=== PATIENT | female | born 1995 | race Caucasian/White ===

== ENCOUNTER 2024-02-01 18:45 | Outpatient (CLI) | payer BC, SELFPAY ==
--- NOTE | 2024-02-01 20:10 | PM.OBTRLD ---
OB - Triage/Final Diagnosis Visit Information Date of evaluation: 02/01/24 Reason for evaluation: other ( leaking fluid) Comments/Additional reasons for admission: I have assessed the risk for this patient, Catracho Herminio Avalos, and determined that she would benefit from observation care.
== END 2024-02-01 20:20 | disposition home or self-care (01) ==
LOC: ANHOBOP 19:44 → ANHLDR 22:11
PROVIDERS: Visit Provider Obstetrics & Gynecology
DX: O42.90 Premature rupture of membranes, unspecified as to length of time between rupture and onset of labor, unspecified weeks of gestation (principal)
CPT/HCPCS: 84112; 99199

== ENCOUNTER 2024-04-27 12:16 | Emergency (ER) | payer BC, SELFPAY ==
[2024-04-27 12:20] VITALS: BP 120/90; PULSE 75; RESP 16; TEMP 36.5; O2SAT 99
--- NOTE | 2024-04-27 12:20 | ED.GENADULT ---
HPI - General Adult General Chief complaint: Vaginal Bleeding Stated complaint: vaginal bleeding Time Seen by Provider: 04/27/24 12:19 History of Present Illness HPI narrative: 28-year-old white female complains of vaginal bleeding. Patient had vaginal delivery February 13 she had continued to have vaginal bleeding since 04/09 2024. She complains of left lower quadrant abdominal pain off and on since . Her physician told her she was just healing. She saw primary care 4 days ago the next day her vaginal bleeding started again she is going through 2-4 pads a day. She says this does not feel like her menstrual cramps. Otherwise she is eating and drinking voiding fine. She has had 2 diarrheal stools. Denies fever cough runny nose swelling lumps or bumps rash or itching bleeding elsewhere bruising. Denies any other complaints. However she does not think her depression medicines working she got upset with the baby but did not hurt to baby. she feels more depressed. Denies any suicidal or homicidal ideation. Related Data Home Medications ?Medication ?Instructions ?Recorded ?Confirmed ?Last Taken ?Type fluvoxamine 150 mg 150 mg PO DAILY 02/01/24 04/27/24 1 Day Ago History capsule,extended release 24 hr ~01/31/24 quetiapine 300 mg tablet (Seroquel) 300 mg PO HS 02/01/24 04/27/24 1 Day Ago History ~01/31/24 Allergies Allergy/AdvReac Type Severity Reaction Status Date / Time erythromycin base Allergy Mild Vomiting Verified 04/27/24 12:26 Review of Systems Review of Systems: All systems reviewed & are unremarkable except as noted in HPI and below [facility] Comments depression and anxiety Exam Narrative: White female patient with mild distress.? patient is tearful when talking about depression otherwise patient showed no signs of distress. Head normocephalic, atraumatic.? Eyes conjunctiva pink sclera nonicteric.? Extraocular movements are intact.? Ears externally normal.? TMs are normal. ?Oropharynx is clear with moist mucous membranes without exudates.? Neck is supple nontender no lymphadenopathy.? Back is nontender.? Lungs are clear.? Heart is regular rate and rhythm without murmurs gallops or rubs.? Chest wall nontender. Abdomen is soft and nontender no hepatosplenomegaly or masses no CVA tenderness no abdominal bruits.? Extremities no cyanosis clubbing or edema.? Skin is warm and dry without rashes or lesions.? Neurological patient is alert and oriented x4.? Motor and sensory grossly intact.? Gait is normal. Course Vital Signs Vital signs: Vital Signs Temperature 36.5 C 04/27/24 12:20 Pulse Rate 75 04/27/24 12:20 Respiratory Rate 16 04/27/24 12:20 Blood Pressure 120/90 04/27/24 12:20 Pulse Oximetry 99 04/27/24 12:20 Oxygen Delivery Room Air 04/27/24 12:20 Temperature 37.4 C 04/27/24 14:23 Pulse Rate 82 04/27/24 14:23 Respiratory Rate 18 04/27/24 14:23 Blood Pressure 119/72 04/27/24 14:23 Pulse Oximetry 99 04/27/24 14:23 Oxygen Delivery Room Air 04/27/24 14:23 Medical Decision Making MDM Narrative Medical decision making narrative: ?Patient placed in room: Six ? History and physical was performed. Lactic acid CBC CMP lipase hCG urinalysis unremarkable Independent Historian: External Source Review: Differential Dx includes but not limited to: anxiety depression menses dysfunctional uterine bleeding diarrhea electrolyte imbalance Medications were Reviewed: home meds reviewed Medications given: Independently Interpreted by me: Shared decision Making: evaluation was discussed all questions were asked and answered patient agreed with the plan. Patient should follow-up with her primary care provider and discuss her depression and discuss whether any further evaluation of her abdominal pain is needed. Social Situation Impacting Patients Care: Discussed with Dr. MORENO DIAGNOSIS: Vaginal bleeding which is likely the start of her menses., abdominal pain depression without suicidal ideation DISPOSITION : discharge home CONDITION AT DISCHARGE: stable Vital Signs Vital Signs: Vital Signs Temperature 36.5 C 04/27/24 12:20 Pulse Rate 75 04/27/24 12:20 Respiratory Rate 16 04/27/24 12:20 Blood Pressure 120/90 04/27/24 12:20 Pulse Oximetry 99 04/27/24 12:20 Oxygen Delivery Room Air 04/27/24 12:20 Temperature 37.4 C 04/27/24 14:23 Pulse Rate 82 04/27/24 14:23 Respiratory Rate 18 04/27/24 14:23 Blood Pressure 119/72 04/27/24 14:23 Pulse Oximetry 99 04/27/24 14:23 Oxygen Delivery Room Air 04/27/24 14:23 Lab Data 04/27/24 12:54 04/27/24 12:54 Labs: Lab Results 04/27/24 04/27/24 04/27/24 Range/Units 12:23 12:42 12:54 WBC 6.1 (4.8-10.8) K/mm3 RBC 4.79 (4.20-5.40) M/mm3 Hgb 13.7 (12.0-15.0) g/dL Hct 42.0 (35.0-49.0) % MCV 87.7 (78.0-102.0) fL MCH 28.6 (27.0-31.0) pg MCHC 32.6 (32-36) g/dL RDW 13.4 (11.6-14.4) % Plt Count 354 (150-420) K/mm3 MPV 8.7 L (9.2-11.8) fl Sodium 140 (136-145) mmol/L Potassium 3.9 (3.5-5.1) mmol/L Chloride 102 (98-108) mmol/L Carbon Dioxide 28 (21-32) mmol/L Anion Gap 10 (4-12) mmol/L BUN 15 (7-18) mg/dL Creatinine 0.83 (0.55-1.02) mg/dL Estim Creat Clear Calc 73 ml/min Estimated GFR > 60 (59 - ) Glucose 96 (70-99) mg/dL Calculated Osmolality 290 (285-295) mOsm/kg Lactic Acid 0.9 (0.4-2.0) mmol/L Calcium 9.4 (8.5-10.1) mg/dL Total Bilirubin 0.4 (0.00-1.00) mg/dL AST 12 L (15-37) U/L ALT 20 (14-59) U/L Alkaline Phosphatase 50 (46-116) U/L Total Protein 7.9 (6.4-8.2) g/dL Albumin 4.5 (3.4-5.0) g/dL Lipase 56 (16-77) U/L Urine Color Light yellow (Yellow) Urine Appearance Clear (Clear) Urine pH 6.0 (5.0-8.0) Ur Specific [place] 1.025 H (1.010-1.020) Urine Protein 1+ H (Negative) Urine Glucose (UA) Negative (Negative) Urine Ketones Trace H (Negative) Ur Blood (Man) 2+ H (Negative) Urine Nitrate Negative (Negative) Urine Bilirubin Negative (Negative) Urine Urobilinogen 0.2 (0.2-1.0) mg/dL Leukocyte Esterase Rfl Negative (Negative) JAIME/UL Urine RBC 11-20 H (0-2) /hpf Urine WBC None seen (0-3) /hpf Ur Squamous Epith Cells Few (Few) /hpf Urine Bacteria Trace (None) /hpf Urine Mucus Few H /lpf Urine Test Negative Discharge Plan Discharge Clinical Impression: Vaginal bleeding, Abdominal pain, chronic, left lower quadrant Depression Qualifiers: Depression Type: depression Qualified Code(s): F53.0 - depression Patient Disposition: Home, Self-Care Condition: Stable Instructions: Depression (ED), Abdominal Pain (ED) Additional Instructions: follow-up with your primary care provider and discuss your depression and further evaluation treatment of this as well as your abdominal pain. Patient Language: Colombian Prescriptions: No Action fluvoxamine 150 mg capsule,extended release 24hr 150 mg PO DAILY quetiapine [Seroquel] 300 mg Tablet 300 mg PO HS Follow-up/Referrals: UNKNOWN,DOCTOR [Non-Staff] - Time of Disposition: 14:50
[2024-04-27 13:00] LABS: Hemoglobin 13.7 g/dL (12.0-15.0); Mean Corpuscular HGB Conc 32.6 g/dL (32-36); Mean Corpuscular Hemoglobin 28.6 pg (27.0-31.0); Mean Corpuscular Volume 87.7 fL (78.0-102.0); Mean Platelet Volume 8.7 fl (9.2-11.8); Platelet Count Result 354 K/mm3 (150-420); Red Blood Count 4.79 M/mm3 (4.20-5.40); Red Cell Distribution Width 13.4 % (11.6-14.4); White Blood Count 6.1 K/mm3 (4.8-10.8)
[2024-04-27 13:14] LABS: Add Urine Microscopic? YES; Appearance Urine Clear (Clear); Bilirubin Urine Negative (Negative); Blood Urine 2+ (Negative); Color Urine Light Yellow (Yellow); Glucose Urine UA Negative (Negative); Ketones Urine Trace (Negative); Leukocyte Esterase Ur Negative LEU/UL (Negative); Nitrate Urine Negative (Negative); Protein Urine 1+ (Negative); Specific Grav Ur 1.025 (1.010-1.020); Urobilinogen Urine 0.2 mg/dL (0.2-1.0)
[2024-04-27 13:17] LABS: Alanine Aminotransferase 20 U/L (14-59); Albumin Level 4.5 g/dL (3.4-5.0); Alkaline Phosphatase 50 U/L (46-116); Anion Gap 10 mmol/L (4-12); Aspartate Amino Transferase 12 U/L (15-37); Bilirubin,Total 0.4 mg/dL (0.00-1.00); Blood Urea Nitrogen 15 mg/dL (7-18); Calcium 9.4 mg/dL (8.5-10.1); Carbon Dioxide 28 mmol/L (21-32); Chloride 102 mmol/L (98-108); Estimated CRCL calculation 73 ml/min; Estimated Glomerular Filt Rate > 60; Glucose 96 mg/dL (70-99); Lipase 56 U/L (16-77); Osmolality Calculated 290 mOsm/kg (285-295); Potassium 3.9 mmol/L (3.5-5.1); Sodium 140 mmol/L (136-145); Total Protein 7.9 g/dL (6.4-8.2)
[2024-04-27 13:18] LABS: Pregnancy On Board Control Positive; Urine Pregnancy Test Negative
[2024-04-27 13:20] LABS: Bacteria Urine Trace /hpf; Mucus Urine Few /lpf; Squamous Epithelial Cell Urine Few /hpf (Few); WBC Urine None seen /hpf (0-3)
[2024-04-27 13:20] LABS: Lactic Acid Reflex 0.9 mmol/L (0.4-2.0)
[2024-04-27 13:34] VITALS: BP 122/74; PULSE 68; RESP 16; O2SAT 100
[2024-04-27 14:23] VITALS: BP 119/72; PULSE 82; RESP 18; TEMP 37.4; O2SAT 99
== END 2024-04-27 14:54 | disposition home or self-care (01) ==
PROVIDERS: Emergency Provider Emergency Medicine
DX: N93.9 Abnormal uterine and vaginal bleeding, unspecified (principal); F53.0 Postpartum depression; R10.32 Left lower quadrant pain; G89.29 Other chronic pain
CPT/HCPCS: 36415; 80053; 81001; 81025; 83605; 83690; 85027; 99283

== ENCOUNTER 2024-08-15 15:34 | Emergency (ER) | payer BC, SELFPAY ==
--- NOTE | ~2024-08-15 | CT_ITS ---
CT brain wo con Ordering provider: Ankush Hunter MD History: 28 years Female with . Anterior H.I., headache/dizziness/blurred vision x1day;worse . Comparison: None. Technique: CT of the head without contrast. Radiation reduction technique utilized.The dose-length pr oduct was 605.33 mGy-cm. FINDINGS: BRAIN PARENCHYMA AND CSF SPACES: Old lacunar infarct in the right basal ganglia. No midline shift, ma ss effect or hemorrhage. The brain parenchyma and CSF spaces are otherwise normal. VISUALIZED PARANASAL SINUSES: Well aerated. MASTOIDS: Well aerated. BONES: Bifid posterior arch of C1. Otherwise, The bones appear intact. SOFT TISSUES: Visualized nasopharynx is normal. Superficial soft tissues are normal. IMPRESSION: No acute intracranial findings. Reviewed, dictated and finalized at location A.
--- NOTE | ~2024-08-15 | CT_ITS ---
CT cervical spine wo con Ordering provider: Ankush Hunter MD History: . Anterior head injury w/ cervical pain x1 day; worsening . Comparison: None. Technique: CT of the cervical spine was performed without contrast. Sagittal and coronal reformatted images were also obtained and reviewed. Automated exposure control and iterative reconstruction tabitha hnique were employed. The dose-length product was 109.91 mGy-cm. FINDINGS: VERTEBRAE: Bifid posterior arch of C1. Small bony fragment is seen near to the tip of a bony protrusi on between the posterior arch and the left pedicle of C1. This may represent acute or old fracture ve rsus nonunited apophysis. Otherwise, No subluxation or acute fracture. The occipital condyles are int act. DISC SPACES: Normal. PARASPINOUS SOFT TISSUES: Normal. IMPRESSION: No definite acute osseous abnormality cervical spine. Bifid posterior arch of C1. Small bony fragment near to the skull base seen on the left side which may be acute versus chronic fr acture versus nonunited apophysis. Clinical correlation and follow-up advised. Reviewed, dictated and finalized at location A. IMPRESSION: No definite acute osseous abnormality cervical spine. Bifid posterior arch of C1. Small bony fragment near to the skull base seen on the left side which may be a cute versus chronic fracture versus nonunited apophysis. Clinical correlation a nd follow-up advised.
[2024-08-15 15:36] VITALS: BP 117/78; PULSE 93; RESP 16; TEMP 36.9; O2SAT 98
--- OUTSIDE RECORDS SUMMARY | 2024-08-15 15:36 | XMS_ITS | Data Portability ---
Author Organization [facility], [address] [facility] ([place]) Address [address] [address] Care Team Providers Care Safety Teacher Name Role Phone TOMASZ QUINTANILLA Primary Care Provider Unavailabl e Assessment Encounter Date Assessment Date Assessment LastModified by Organization Details LastModified Time 07/05/2024 07/05/2024 Likely viral URI. She is on about day 7. Overall improving. Recommended continued watchful waiting/ supportive treatment. If not improving further by the end of the week, would consider Amox for sinusitis. Patient voices understanding and agreement with the plan. [email or web address] Not available 07/05/2024 17:50:29 07/28/2024 07/28/2024 Likely a viral URI. We discussed viral testing today and she declines for now given mild symptoms, which I feel is reasonable. Recommended supportive treatment adding an OTC allergy medication. F/u if worsening symptoms or failure to improve/symptoms lasting > 7-10 days [email or web address] Not available 07/28/2024 13:02:59 Plan of Treatment Reminders Order Date Submit Date Provider Last Modified By Organization Details Last Modified Time Details Appointments None recorded. Lab CBC 2024 025 [facility], [address], [address], 14:49:25 Referral None recorded. Procedures None recorded. Surgeries None recorded. Imaging None recorded. Medication Orders venlafaxine ER 37.5 mg capsule,ext ended release 24 hr 2024 025 [facility], [facility] [address], [place], [address], 5 15:09:07 venlafaxine ER 75 mg capsule,ext ended release 24 hr 2024 025 [facility], [address], [place], [address], 5 15:09:07 venlafaxine ER 37.5 mg capsule,ext ended release 24 hr 2024 025 EL[facility], [address], [place], [place], [id number], 5 15:31:30 venlafaxine ER 75 mg capsule,ext ended release 24 hr 2024 025 ELMER [facility], [address], [place], [place], [id number], 5 15:31:29 nicotine 14 mg/24 hr daily transdermal patch 2024 025 ELMER [facility], [address], [place], [place], [id number], 5 15:15:06 nicotine 7 mg/24 hr daily transdermal patch 2024 025 [email or web address] [facility], [address], [place], [place], [id number], 5 14:35:17 venlafaxine ER 75 mg capsule,ext ended release 24 hr 2024 025 EL[facility], [address], [id number], 5 13:10:09 Patient TargetsNo targets recorded. Patient Instructions Encounter Date Encounter Id Patient Instructions Last Modified By Organization Details Last Modified Time 05/03/2024 [id number] Follow-up as scheduled in 2-3 weeks, PRN in interim [email or web address] Not available 05/03/2024 17:54:34 06/02/2024 [id number] Venlafaxine increased today. Start Nicotine patches for smoking cessation. Return in one month for recheck. Patient reports agreement and understanding with this plan. [email or web address] Not available 06/03/2024 00:26:20 06/30/2024 [id number] Would like to se e her back in another month - wherein hopefully psychiatry will be on board. Patient reports agreement and understanding with this plan. [email or web address] Not available 06/30/2024 15:18:55 Reason for Referral None Reported. Results Created Date Observation Date Name Description Value Unit Range Abnormal Flag Note LastModifiedBy Organization Detail LastModifiedTime 05/03/1905/04/2024 CBC CBC Not Available [facility] [address] [place] [address], [id number], 05/04/2024 14:49:25 05/03/1905/04/2024 CBC WBC 5.2 K/uL 3.8-11 .2 Not Available [facility] [address] [place] [address], [id number], 05/04/2024 14:49:25 05/03/1905/04/2024 CBC RBC 4.48 M/uL 3.92-5 .10 Not Available [facility] [address] [place] [address], [id number], 05/04/2024 14:49:25 05/03/1905/04/2024 CBC HGB 13.1 g/dL 11.8-1 5.3 Not Available [facility] [address] [place] [address], [id number], 05/04/2024 14:49:25 05/03/1905/04/2024 CBC HCT 39.9 % 36.5-4 4.8 Not Available [facility] [address] [place] [address], [id number], 05/04/2024 14:49:25 05/03/1915 0505/04/2024 CBC MCV 89.1 fL 80.0-9 9.0 Not Available [facility] [address] [place] [address], [id number], 05/04/2024 14:49:25 05/03/19 25 05/04/2024 CBC MCH 29.2 pg 25.5-3 3.6 Not Available [facility] [address] [place] [address], [id number], 05/04/2024 14:49:25 05/03/19 25 05/04/2024 CBC MCHC 32.8 g/dL 32.0-3 6.0 Not Available [facility] [address] [place] [address], [id number], 05/04/2024 14:49:25 05/03/19 25 05/04/2024 CBC RDW-SD 43.5 fL 35.1 - 46.3 Not Available [facility] [address] [place] [address], [id number], 05/04/2024 14:49:25 05/03/19 25 05/04/2024 CBC plt 370 K/uL 130-40 0 Not Available [facility] [address] [place] [address], [id number], 05/04/2024 14:49:25 05/03/1905/04/2024 CBC MPV 9.6 fL 9.3-12 .8 Not Available [facility] [address] [place] [address], [id number], 05/04/2024 14:49:25 Result Notes None recorded. Problems Name Problem SNOMED Code Status Onset Date Resolution Date Notes Provider Name and Address Organization Details Recorded Time Group B Streptoc occus carrier 60630121164 03 Completed +screen at 36w. Plan for intrapar christina antibiot ics. Mulugeta Mcgregor MD [address] [place] [address], [phone] [place] [address] 4 07:35:25 Moderate major depressi on, single episode 84463451 Active Currentl y on Fluvoxam ine, buspar, and venlafax ine. Buspar decrease d to BID from TID due to possible dizzines s- venlafax ine started 04/2024. Has had some off/on c/o visual/a uditory hallucin ations. at appt 07/28/24 pt reports improvem ent. NO further visual james. Auditory occasion ally but never with any intrusiv e thoughts . No suggesti ons of harming herself or others. Working on therapy referral w/ Connie Curtis. Previous ly trialed: venlafax , clonidin e (stopped due to muscle cramps), clonazep am, trazodon e, buspar, wellbutr in, mirtaz, sertrali ne, seroquel (stopped due to faitgue with new baby) and risperid one. Also tried Abilify which made mood worse. Sharon Sorensen, TRANSPORT TECHNICIAN [address] [place] [address], [address], [facility] 5 13:07:51 Anxiety 51684578 Active 2023 See depressi on TOMASZ QUINTANILLA MD [address] [place] [address], [address], [facility] 5 17:57:33 Abnormal vaginal Papanico laou smear 390550056 Active 2023 ASCUS unknown HPV 10/16/22, prior to that NILM, due for repeat pap 09/2023 TOMASZ QUINTANILLA MD [address] [place], [address], [facility] 4 09:02:15 Acute respirat ory distress syndrome 25606828 Completed 202004/21/2020 vape induced lung injury, required ventilat or support TOMASZ QUINTANILLA MD [address] [place], [address], [facility] 4 09:04:11 Dizzines s 429085538 Active 2024 TOMASZ QUINTANILLA MD [address] [place] [address], [address], [facility] 5 13:09:05 Viral upper respirat ory tract infectio n 856601184 Active 2024 Sharon Sorensen, TRANSPORT TECHNICIAN [address] [place] [address], [address], [facility] 5 12:17:40 Marijuan a user 692770389 Completed every other day Mulugeta Mcgregor MD [address] [place] [address], [phone], [facility] 4 11:03:52 Blood group A 317742566 Completed prior provider flowshee t not clear on Rh Status. A+ confirme d on 32wk labs. Mulugeta Mcgregor MD [address] [place] [address], [address], [facility] 4 09:58:20 Normal pregnanc y 25461534 Completed 05/03/2024 TOMASZ QUINTANILLA MD [address] [place] [address], [address], [facility] 5 17:57:08 Depressi ve disorder 09702419 Completed Controll ed w/ Fluvoxam ine and Seroquel coming into (and continue d in) pregnanc y Mulugeta Mcgregor MD [address] [place] [address], [address], [facility] 4 11:03:52 Abnormal ity of heart 527018038 Completed 2023 Appearan ce of bidirect ional flow in aorta on tracheal view. Normal on MFM eval at 33w where advised ok to deliver locally ( cis), but suggeste d post-strar al echo non-urge ntly. Mulugeta Mcgregor MD [address] [place] [address], [address], [facility] 10:50:38 Notes:Some problems listed i n Document: #[id number] could not be added to this patient's chart. Please review this document and add these problems to the patient's chart manually as needed. Problem Notes None recorded. Procedures Surgical History Date Name Laterality Status Provider Name and Address Organization Details Recorded Time 07/18/2022 Date of Last Pap Smear completed Not Available Health Note 01/07/2024 14:02:31 Imaging Results None recorded. Procedure Notes None recorded. Medical Equipment None Reported. Allergies Allergen ID Allergen Name Allergen Category Reaction Reaction Severity Criticality Documentation Date Start Date Code Code System Note Provider Name and Address Organization Details Recorded Time 0314514 erythromy natalia medicatio n vomiting Not available Not available 10/17/2023 4053 RxNorm and sever e body pain Not Available Not Available Not Available 0404103 lavender extract food rash Not available Not available 10/17/2023 48935 67 RxNorm and tight throa t Not Available Not Available Not Available Medications Name Sig Start Date Stop Date Status Note LastModified by Organization Details LastModified Time venlafaxi ne ER 37.5 mg capsule,e xtended release 24 hr TAKE 1 CAPSULE DAILY ALONG WITH 75 MG CAPSULE TO EQUAL 112.5 MG DAILY 2024 active Not Available Not Available Not Avai lable venlafaxi ne ER 75 mg capsule,e xtended release 24 hr TAKE 1 CAPSULE DAILY ALONG WITH 37.5 MG CAPSULE TO EQUAL 112.5 MG DAILY. 2024 active Not Available Not Available Not Avai lable nicotine 14 mg/24 hr daily transderm al patch Apply 1 patch every day by transder mal route for 7 days. 2024 active Not Available Not Available Not Avai lable quetiapin e 300 mg tablet Take 1 tablet every day by oral route at bedtime. 02/22 completed Deferred 02/23/24 to lower dose Not Available Not Available Not Available quetiapin e 200 mg tablet TAKE 1 TABLET BY MOUTH AT BEDTIME 11/30 completed dose clarific ation Not Available Not Available Not Available nifedipin e 10 mg capsule TAKE 1 CAPSULE BY MOUTH TWICE DAILY NEEDED FOR CONTRACT ION PAIN BEFORE 37 WEEKS 03/01 completed Not Available Not Available Not Available fluvoxami ne 100 mg tablet TAKE 1 TABLET BY MOUTH TWICE DAILY 10/16 completed Not Available Not Available Not Available misoprost ol 200 mcg tablet TAKE FOUR TABLETS BY MOUTH A ONE TIME DOSE 10/16 completed Not Available Not Available Not Available monteluka st 10 mg tablet TAKE 1 TABLET BY MOUTH ONCE DAILY 10/16 completed Not Available Not Available Not Available ondansetr on 4 mg disintegr ating tablet DISSOLVE 1 TABLET IN MOUTH EVERY 8 HOURS NEEDED FOR NAUSEA 10/16 completed Not Available Not Available Not Available nicotine 7 mg/24 hr daily transderm al patch Apply 1 patch every day by transder mal route. 06/30 completed Not Available Not Available Not Available buspirone 15 mg tablet Take 1 tablet 3 times a day by oral route. 2024 active Changed to BID on 05/03/24 due to possible dizzines s Not Available Not Available Not Available quetiapin e 50 mg tablet TAKE 1 TABLET BY MOUTH TWICE DAILY 04/23 completed Not Available Not Available Not Available fluvoxami ne ER 150 mg capsule,e xtended release 24 hr TAKE ONE CAPSULE BY MOUTH DAILY AT BEDTIME active Not Available Not Available No t Available Vitamins Plus Low Iron 27 mg iron-1 mg tablet TAKE 1 TABLET BY MOUTH ONCE DAILY active Not Available Not Available No t Available BinaxNOW COVID-19 Ag Self Test kit TEST DIRECTED TODAY 04/23 completed Not Available Not Available Not Available Vitals Date Recorded Body weight Body temperature Heart rate Oxygen saturation Oxygen saturation in Arterial blood by Pulse oximetry Systolic blood pressure Diastolic blood pressure Provider Name and Address Organization Details Last Updated DateTime 5 75182.5 3 g 97 [degF] 81 /min 98 % 98 % 114 mm[Hg] 82 mm[Hg] [facility] 5 12:09:28 Date Recorded Body weight Body temperature Heart rate Oxygen saturation Oxygen saturation in Arterial blood by Pulse oximetry Systolic blood pressure Diastolic blood pressure Provider Name and Address Organization Details Last Updated DateTime 5 77591.7 5 g 96.6 [degF] 81 /min 96 % 96 % 102 mm[Hg] 74 mm[Hg] [facility] 5 14:44:38 Date Recorded Body weight Body temperature Heart rate Oxygen saturation Oxygen saturation in Arterial blood by Pulse oximetry Systolic blood pressure Diastolic blood pressure Provider Name and Address Organization Details Last Updated DateTime 5 67337.8 5 g 97.5 [degF] 115 /min 98 % 98 % 124 mm[Hg] 80 mm[Hg] Karolina Bridges [facility] 5 14:37:41 Date Recorded Body weight Body temperature Respiratory rate Heart rate Oxygen saturation Oxygen saturation in Arterial blood by Pulse oximetry Systolic blood pressure Diastolic blood pressure Provider Name and Address Organization Details Last Updated DateTime 5 44365.7 8 g 99.1 [degF] 16 /min 98 /min 99 % 99 % 120 mm[Hg] 78 mm[Hg] Radha Vicente [facility] 5 12:57:32 Date Recorded Body weight Body temperature Heart rate Oxygen saturation Oxygen saturation in Arterial blood by Pulse oximetry Systolic blood pressure Diastolic blood pressure Provider Name and Address Organization Details Last Updated DateTime 5 65326.3 2 g 97.6 [degF] 78 /min 98 % 98 % 108 mm[Hg] 60 mm[Hg] Gauri Delgado [facility] 5 11:47:05 Social History Question Answer Notes LastModified by Organizat ion Details LastModified Time Tobacco Smoking Status Never Smoker Not Available Health Note 01/07/2024 14:02:30 Do You Have An Advance Directive? No [email or web address] Information not available 01/07/2024 What Is Your Level Of Alcohol Consumption? None [email or web address] Information not available 01/07/2024 What Is Your Level Of Caffeine Consumption? None [email or web address] Information not available 01/07/2024 Are You Currently Employed? 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 3-4 Times Per Week [email or web address] Information not available 01/07/2024 Smokeless Tobacco? Former Smokeless Tobacco User [email or web address] Information not available 01/07/2024 When Did You Quit Smoking? 02/23/2015 [email or web address] Information not available 11/15/2023 Do You Have A Medical Power Of Air Pollution Engineer? No [email or web address] Information not available 01/07/2024 What Was The Date Of Your Most Recent Tobacco Screening? 01/07/2024 [email or web address] Information not available 01/07/2024 What Is Your Relationship Status? Single [email or web address] Information not available 01/07/2024 Do You Use Any Illicit Or Recreational Drugs? No [email or web address] Information not available 01/07/2024 Sex: Unknown Functional Status Question Answer Note LastModified by Organization D etails LastModified Time What is your exercise level? Moderate [email or web address] Information not available 01/07/2024 Mental Status None recorded. Family History Relationship Description Onset Age of this Age Resolved Age Notes LastModified by Organization Details LastModified Time Mother Diabetes mellitus [email or web address] Not available 2023 10:23:37 Mother Hypertensive disorder [email or web address] Not available 2023 12:01:54 Father Atrial fibrillation [email or web address] Not available 10:23:50 Father Hypertensive disorder [email or web address] Not available 2023 12:01:54 Maternal Grandfather Asthma [email or web address] Not available 2023 12:01:54 Maternal Grandfather Family history of malignant neoplasm [email or web address] Not available 2023 12:01:54 Maternal Grandmother Asthma [email or web address] Not available 2023 12:01:54 Maternal Grandmother Family history of malignant neoplasm [email or web address] Not available 2023 12:01:54 Paternal Grandfather Family history of malignant neoplasm [email or web address] Not available 2023 12:01:54 Notes:Father has high blood pressure Father has a-fib Medical History Condition Response Anxiety Disorder Y Diabetes N Bleeding Disorder N Attention-deficit Hyperactivity Disorder N High Blood Pressure N Arthritis N Hyperlipidemia N Cancer N Thyroid Problems N Stroke N Asthma Y Depression Y COPD N Seizures N Anemia Y Heart Disease N Fibromyalgia N Osteoporosis N Kidney Disease N Gynecological History Statement/Question Response Abnormal Pap Y Date of Last Pap Smear 07/18/2022 Age at Menarche 18 Current Control Method Obstetrics History GPAL:G 2 P 1 0 1 1 Type Value Full Term 1 Spontaneous 1 Living 1 Total 2 Immunizations Vaccine Type Date Status Note Provider Nam e and Address Organization Details Recorded Time Tdap 4 completed Gauri Virgenake null, [facility] 03/12/2024 15:50:41 Influenza, split virus, trivalent, PF 4 completed Gauri Promiseake null, [facility] 03/12/2024 15:50:41 Hib-Hep B 8 completed Gauri Schaake null, [facility] 10/17/2023 10:20:28 Hib-Hep B 8 completed Gauri Schaake null, [facility] 10/17/2023 10:20:28 Hib-Hep B 8 completed Gauri Promiseake null, [facility] 10/17/2023 10:20:28 [facility] 10:20:29 IPV 8 completed [facility]/17/2023 10:20:29 IPV 2 completed [facility]/2023 10:20:29 meningococcal, unknown serogroups 2 completed [facility]/17/2023 10:20:29 MMR 2 completed [facility]/17/2023 10:20:29 MMR 8 completed Gauri Schaake null, [facility] 10/17/2023 10:20:29 Tdap 2 completed [facility]/2023 10:20:29 varicella 2 completed Gauri Schaake null, [facility] 10/17/2023 10:20:29 varicella 2 completed Gauri Promiseake null, [facility] 10/17/2023 10:20:29 OPV 8 completed Gauri Promiseake null, [facility] 10/17/2023 10:20:29 influenza, split (incl. purified surface antigen) 9 completed Gauri Delgado null, [facility] 10/17/2023 10:20:29 Hep A, ped/adol, 2 dose 5 [facility] 10:20:29 Hep A, ped/adol, 2 dose 2 completed Gauri Delgado null, [facility] 10/17/2023 10:20:29 meningococcal MCV4P 5 completed Gauri Delgado null, [facility] 10/17/2023 10:20:29 DTaP 8 completed Gauri Delgado [facility], [facility] 10/17/2023 10:20:29 DTaP 8 completed Gauri Delgado [facility] 10/17/2023 10:20:29 DTaP 8 completed Gauri Sandy null, [facility] 10/17/2023 10:20:29 DTaP 2 completed Gauri Delgado [facility], [facility] 10/17/2023 10:20:29 DTaP 8 completed Gaurialexa Delgado [facility] 10/17/2023 10:20:29 Past Encounters Encounter ID Performer Location Encounter Start Date Encounter Closed Date Diagnosis/Indication Diagnosis SNOMED-CT Code Diagnosis ICD10 Code Diagnosis Note [id number] Mulugeta Mcgregor MD [facility]) [facility] [place] [address] 10/17/2023 10:03:36 10/17/2023 11:09:07 97484997 Z33.1 Normal 2184950 2 Z34.90 [id number] Mulugeta Mcgregor MD [facility]) [facility] [place] [address] 11/17/2023 11:41:13 11/17/2023 12:35:33 Normal 46983549 Z34.90 [id number] Mulugeta Mcgregor MD [facility] ([place]) [address] [place] [address] 12/19/2023 16:00:45 12/20/2023 06:10:45 Normal 44823192 Z34.90 [id number] Mulugeta Mcgregor MD [facility] ([place]) [address] [place] [address] 01/07/2024 16:32:30 01/07/2024 17:16:10 Normal 17319861 Z34.90 [id number] Mulugeta Mcgregor MD [facility] ([place]) [address] [place] [address] 01/19/2024 16:52:25 01/19/2024 17:14:22 Normal 20218863 Z34.90 [id number] Mulugeta Mcgregor MD [facility] ([place]) [address] [place] [address] 02/02/2024 17:18:08 02/10/2024 17:44:01 Normal 51034139 Z34.90 [id number] Mulugeta Mcgregor MD [facility] ([place]) [address] [place] [address] 02/05/2024 17:20:43 02/05/2024 17:58:21 Normal 12298188 Z34.90 [id number] Mulugeta Mcgregor MD [facility] ([place]) [address] [place] [address] 02/09/2024 14:35:50 02/09/2024 15:13:36 Gestation period, 36 weeks 93538707 Z3A.36 Normal 0646878 2 Z34.90 [id number] TOMASZ QUINTANILLA MD [facility] ([place]) [address] [place] [address] 03/01/2024 12:02:01 03/01/2024 13:39:43 Anxiety 93427311 F41.9 Having worsening anxiety- discussed supports in her life- reaching out to them for extra help. Will start buspar at this time as she feels fluvoxamin e has not done much for her anxiety. No concerns for harming self/baby/ pp psychosis. Discussed stressors of life and breastfeed ing- did encourage her to reach out if necessary- will have her follow up in 1 week to see how she is doing. Abnormal v aginal Papanicolaou smear 714714245 R87.629 Reports abnormal pap in 2022- given records request today to see what those results were. state 8308293 1 Z39.2 Doing well physically - discussed nothing vaginally until 6 week brad. Following up 1 week from today, next check will be in 4 weeks. [id number] TOMASZ QUINTANILLA MD [facility] ([place]) [address] [place] [address] 03/12/2024 15:44:39 03/16/2024 05:37:19 Anxiety 16204898 F41.9 Doing well with buspar, no side effects. Denies any SI/thought s of hurting baby. Anxiety has greatly improved. Will continue with current dosing- patient to make f/u appt in mid-Decemb er with baby for 8 week pp check. [id number] TOMASZ QUINTANILLA MD [facility] ([place]) [address] [place] [address] 04/23/2024 14:55:27 04/26/2024 16:42:06 Anxiety 00548105 F41.9 Continuing to have anxiety, no red flag signs. Feels that it helps, but wears out. Will increase from 2x per day to 3x per day to see how it helps with anxiety. Patient agreeable to plan, will f/u in 1 month- due also for pap at that time. state 0374923 1 Z39.2 Doing well physically , having continued anxiety. Discussed contracept ion options- patient would like to defer at this time. Did discuss that she can get - discussed using condoms if she has intercours e to prevent . Abnormal v aginal Papanicolaou smear 380952128 R87.629 ASCUS unknown HPV 09/2022- due for repeat. Unable to do today as baby with her- will plan to do at next visit in 1 month [id number] TOMASZ QUINTANILLA MD [facility] ([place]) [address] [place] [address] 05/03/2024 11:56:44 05/03/2024 13:23:01 Moderate major depression, single episode 31071055 F32.1 Discussed multiple options including increasing buspar again to see if it was just dizzines from menses, increasing her fluvoxamin e, or starting venlafaxin e. Patient would like to trial starting venlafaxin e. Would also be interested in counseling - previously saw someone at [facility] who she worked well with. Recommende d she reach out to them to see if they accept her insurance as she would be more comfortabl e with someone she knows. If not, will work to get her in with Gracy in our office. F/u in 2-3 weeks, call if any new side effects or thoughts of SI/HI. Pt verbalized understand ing of plan. Dizziness 965929133 R42 Was having dizziness- had medication change and return of menses all at same time, difficult to tell what cause was. Will check CBC to rule out anemia given coincidenc e with menses [id number] Mulugeta Mcgregor MD [facility] ([place]) [address] [place] [address] 06/02/2024 14:36:19 06/02/2024 15:17:50 Substance abuse counseling 329021849 Z71.6 Instructio ns given on patches for smoking cessation. Moderate m ajor depression, single episode 66386023 F32.1 Currently on Fluvoxamin e, buspar, and venlafaxin e. Buspar decreased to BID from TID due to possible dizziness- venlafaxin e started 04/2024. Working on therapy referral. Previously trialed: venlafax, clonidine (stopped due to muscle cramps), clonazepam , trazodone, buspar, wellbutrin , mirtaz, sertraline , seroquel (stopped due to fatigue with new baby) and risperidon e -Increase dose of Venlafaxin e. She feels she is tolerating the Buspar now taking it just BID. Pt given phone number today to contact [facility] for counseling . [id number] Mulugeta Mcgregor MD [facility]) [address] [place] [address] 06/30/2024 14:28:21 06/30/2024 15:06:47 Moderate major depression, single episode [id number] F32.1 Currently on Fluvoxamin e, buspar, and venlafaxin e. Buspar decreased to BID from TID due to possible dizziness- venlafaxin e started 04/2024. Working on therapy referral. Previously trialed: venlafax, clonidine (stopped due to muscle cramps), clonazepam , trazodone, buspar, wellbutrin , mirtaz, sertraline , seroquel (stopped due to fatigue with new baby) and risperidon e -Mood improved on the increased dose of venlafaxin e, however, still hearing the voices. She has not started any formal counseling yet, so I suggested we refer her to [facility], our telepysch service, for both counseling and medication suggestion s. She is agreeable and we will place order today. She also asked about FLMA, which I explained will have to come from her place of employment , but we can be completed by our office if she decides that is something she would like to do. [id number] Mulugeta Mcgregor MD [facility]) [facility] [place] [address] 07/05/2024 12:47:08 07/05/2024 13:20:28 Viral upper respiratory tract infection [id number] J06.9 [id number] Mulugeta Mcgregor MD [facility]) [address] [place] [address] 07/28/2024 11:28:12 07/28/2024 12:28:59 Viral upper respiratory tract infection [id number] J06.9 Moderate m ajor depression, single episode [id number] F32.1 Currently on Fluvoxamin e, buspar, and venlafaxin e. Buspar decreased to BID from TID due to possible dizziness- venlafaxin e started 04/2024. Has had some off/on c/o visual/aud itory hallucinat ions. at appt 07/28/24 pt reports improvemen t. NO further visual hallucinat ions. Auditory occasional ly, but never with any intrusive thoughts. No suggestion s of harming herself or others. Working on therapy referral w/ [facility] Concerns Section Related Observation LastModified by Organization Dalila kelly LastModified Time None Recorded Concern Status LastModified by Organization Details LastModified Time None Recorded Advance Directives Directive N: Payers Encounter Date Sequence Insurance Name Policy Number Policy Peck Covered Member ID Peck Member ID Guarantor Name 05/03/2024 1 [facility] [facility] (MEDICAID REPLACEMENT - HMO) [id number] Catracho A Robbie [id number] Catracho A Robbie 06/02/2024 1 [place] [facility] (MEDICAID REPLACEMENT - [place]MO) [id number] Catracho A Robbie [id number] Catracho A Robbie 06/30/2024 1 [place] [facility] (MEDICAID REPLACEMENT - [place]MO) [id number] Catracho A Robbie [id number] Catracho A Robbie 07/05/2024 1 [place] [facility] (MEDICAID REPLACEMENT - [place]MO) [id number] Catracho A Robbie [id number] Catracho A Robbie 07/28/2024 1 [place] [facility] (MEDICAID REPLACEMENT - [place]MO) [id number] Catracho A Robbie [id number] Catracho A Robbie Notes Date Note Type Note Provider Name and Address Organization Details Recorded Time 05/03/2024 text/html #Anxiety/depress ion# Dizziness- last visit, increased buspar to 15mg TID for anxiety, states following this began to have dizziness- starte having bleeding around this time too- consistent with return of menses after having baby- unsure if dizziness improved after stepping down medication or after cessation of menses- not related to position changes- has improved but still feeling a little lightheaded/unsteady - states she has been on multiple medications in the past, did not feel seroquel helped at all- noticing that she is more impatient and frustrated- also very fixated on anxiety regarding SIDS- thinks venlafaxine was helpful to her in the past- denies thoughts of self harm or harm to others/baby- has done counseling in the past, found it to be helpful TOMASZ QUINTANILLA MD [address] [place] [address], [phone], [facility] 05/04/2024 18:04:54 06/02/2024 text/html Anxiety/depressi on-S tarted venlafaxine last month-Counseling with [facility] - has not contacted them yet.-states she was having visual and auditory hallucinations - states, previously, after giving she heard people whispering as she was falling asleep - to clarify these hallucinations were not new after starting the venlafaxine. She was having them prior to starting it.-She denies SI/HI. 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 2. would like to discuss nicotine cessation-She is using the nicotine pouches - a couple daily-She had quit using nicotine when - vaped prior to then started up post- with the pouches. Sharon Sorensen APRN [address] [place] [address], [phone], [facility] 06/03/2024 00:27:54 06/30/2024 text/html F/U on meds-dillan es H/I and S/I-We checked in on Catracho on 06/16 via phone and she stated that the hallucinations were completely gone. She states today that the (mostly auditory) hallucinations have returned. She often hears voices telling her that things in her life are not real. Also has feelings that she is and that nothing that is happening to her is really happening. She DENIES hearing any voices that are telling her to harm herself or her baby. She does not feel either of them are in an eminent danger.-Gets about 7-8 hours of sleep at night-She is calling into work a lot due to anxiety she experiences at work and is wondering about FMLA until she is feeling less anxiety-She stresses that her depression HAS improved with the increased venlafaxine dose. She feels her mood is much better. [email or web address] Sharon Sorensen, ESEQUIEL [address] [place] [address], [phone], [facility] 07/01/2024 13:08:24 07/05/2024 text/html patient is here today for a sick visit. sx started about a week ago that include: runny nose, throat irritation, itchy eyes, fatigued, and no fever noted at home on herself.-overall feeling better. Edwina Washington, ESEQUIEL, CHARGE MANAGER [address] [place] [address], [phone], [facility] 07/05/2024 17:50:58 07/28/2024 text/html 1. Sick-sore thr oat, cough, congestion and fatigue - started 2 days ago-Sore throat worse in am and then goes away as the day goes on and no sore throat to speak of currently-symptoms started 2 days ago-No cough-temp 99.7 at home - No tylenol/ibuprofen today-not taking any OTC medication-Eating and drinking ok 2. f/u depression/anxiety- Pt report improvement overall - especially with hallucinations. NO further visible hallucinations. 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 She no longer dreads going to work and does not get anxious while she is there. Sharon Sorensen APRN [address] [place] [address], [phone], [facility] 07/28/2024 23:09:07 OBGyn Episode Ob Episode Information Episode Created Date Number of Fetuses Patient Bloodtype Patient rh Status Prepregnancy Weight lbs Domestic Partner Domestic Partner Phone Father Name Carpenter Labor Supervisor Status 10/17/19 24 1 CLOSED Fetus Data First Name Last Name Admitted to NICU Weight (g) Sex Living Outcome Pediatric Complications Fetus ID Race Codes Race Delivery Type , Spontane ous 8887 Aborted - Spontaneo us Gerry Calculation Initial Gerry Date Initial Exam Date Initial Exam Provider Initial Ultrasound Date Last Menstrual Period Date Ultra Sound Weeks Gestation 0 Eighteen To Twenty Week Gerry Update Ultra Sound Date Fundal Height At Umbil Quickening Date Ultra Sound Latest Weeks Gestation Final Gerry Confirmed By Final Gerry Confirmed Date Final Gerry Date Ultra Sound Latest Days Gestation 0 0 Menstrual History Last Menstrual Date Menses Monthly On Bcp Conception Prior Menses Frequency Hcg Plus Date Menarche Onset Age Delivery Information Delivery Date Delivery Type Labor Anesthesia Weeks Gestation Incision Type Labor Labor Length Hrs Delivered By Post Complications Tubal Sterilization Discharge Date Comments 4 6 Discharge Information Feeding Method Contraceptive Method Maternal HG B and HCT Levels Ob Episode Information Episode Created Date Number of Fetuses Patient Bloodtype Patient rh Status Prepregnancy Weight lbs Domestic Partner Domestic Partner Phone Father Name Carpenter Labor Supervisor Status 10/17/19 24 1 A Positive 117 (prior PCP at [facility], but insurance changes) CLOSED Fetus Data First Name Last Name Admitted to NICU Weight (g) Sex Living Outcome Pediatric Complications Fetus ID Race Codes Race Delivery Type Ethan Ochoa all false 3061.74 6 M true Full Term 8888 (Normal Spontaneo us Vaginal Delivery) Problems Problem Notes Labs from prior PCP (Dr. Herrera at [facility])- Blood Type listed at one point as A+ but another part of flowsheet lists Rh Type as Non reactive - Antibody Neg, Hb 12.8, Rub Imm, HepB Neg, HIV Neg, RPR Neg- GC/CT Neg, HepC Non-reactive, UrineDrugScreen Positive Cotinine (c/w nicotine smoker)- [id number] Negative (Male) [x] desires circumcision - discussed nature / risk / benefits Problem Name Start Date End Date Resolution Snomed Code Not e Depressive disorder [id number] Controlled w/ Fluvoxamine and Seroquel coming into (and continued in) Marijuana user [id number] every other day Blood group A [id number] prior provider flowsheet not clear on Rh Status. A+ confirmed on 32wk labs. Abnormality of heart 10/21/2023 [id number] Appearance of bidirectional flow in aorta on tracheal view. Normal on MFM eval at 33w where advised ok to deliver locally ([facility]), but suggested post- echo non-urgently. Group B Streptococcus carrier [id number] +screen at 36w . Plan for intrapartum antibiotics. Gerry Calculation Initial Gerry Date Initial Exam Date Initial Exam Provider Initial Ultrasound Date Last Menstrual Period Date Ultra Sound Weeks Gestation 03/02/2024 10/17/2023 07/23/2023 02/19/2023 8 Eighteen To Twenty Week Gerry Update Ultra Sound Date Fundal Height At Umbil Quickening Date Ultra Sound Latest Weeks Gestation Final Gerry Confirmed By Final Gerry Confirmed Date Final Gerry Date Ultra Sound Latest Days Gestation 0 [email or web address] 10/17/2023 03/02/20 24 0 Pre-mahad Flowsheet Flowsheet Date 10/17/2023 Beard Score Blood Edema Fundus Height Fundus Units Glucose Ketones Leukocytes Nitrite Labor Signs Protein Cervic Dilation Cervic Effacement Cervic Station Type Weight in lbs Pre/Post Dialysis Refused Weight 122.235069446520 BP Diastolic BP Location Tested BP Systolic BP Type 52 118 Fetus Heart Rate Present A 145 Fetus Movement A Yes Comments Has not had 20 week US yet. We will schedule that. Fell down stairs Friday, seen [facility] on FridayReports low lying placenta there (and her sister had placental calcification?). - i advised pelvic rest until we can confirm placenta location. to f/u in 4wks. Flowsheet Date 11/17/2023 Beard Score Blood Edema Fundus Height Fundus Units Glucose Ketones Leukocytes Nitrite Labor Signs Protein Cervic Dilation Cervic Effacement Cervic Station none 25 cm none Type Weight in lbs Pre/Post Dialysis Refused 131.603915048521 BP Diastolic BP Location Tested BP Systolic BP Type 68 L arm 104 sitting Fetus Heart Rate Present A 148 Present Fetus Movement A Increased Comments 1) needing a work note for t nicole and a note stating needs a break after 4hours of work.2) note/ discussed nmL placenta location. 3) discussed need for repeat US w/ MFM for aortic arch eval.4) 1hr GTT instrxns given. To be done at [facility]5) discussed circumcision, and she would like to have that done, yes (discussed nature / risk / benefits) Flowsheet Date 12/19/2023 Beard Score Blood Edema Fundus Height Fundus Units Glucose Ketones Leukocytes Nitrite Labor Signs Protein Cervic Dilation Cervic Effacement Cervic Station 29 cm Type Weight in lbs Pre/Post Dialysis Refused 138.551210881783 BP Diastolic BP Location Tested BP Systolic BP Type 68 100 Fetus Heart Rate Present A 150 Fetus Movement A Yes Comments doing well overall. Flowsheet Date 01/07/2024 Beard Score Blood Edema Fundus Height Fundus Units Glucose Ketones Leukocytes Nitrite Labor Signs Protein Cervic Dilation Cervic Effacement Cervic Station 32 cm none neg Type Weight in lbs Pre/Post Dialysis Refused 139.595832310214 BP Diastolic BP Location Tested BP Systolic BP Type 70 110 Fetus Heart Rate Present A 148 Fetus Movement A Yes Comments 1) CBC, RPR, HIV, and ABO/Rh ordered / drawn today2) Info given to patient on flu, Tdap (and RSV) vaccine [facility]3) Painful contractions on 01/04/24. Would occur of 30 minutes, stop, and then return for another 30 minutes- Vomiting x1 last night while having strong contractions- Pt is having some contractions today as well- will Rx PRN nifedipine (discused nature / risks) to [facility] pharmacy. Flowsheet Date 01/16/2024 Beard Score Blood Edema Fundus Height Fundus Units Glucose Ketones Leukocytes Nitrite Labor Signs Protein Cervic Dilation Cervic Effacement Cervic Station Type Weight in lbs Pre/Post Dialysis Refused BP Diastolic BP Location Tested BP Systolic BP Type Fetus Heart Rate Present Fetus Movement Comments CHART UPDATE:- visit with PAT Abrams on 01/14/24 (33w1d) where US c/w nmL growth (62%ile), Fluid, and heart views. SALLIE then advised ok to deliver locally ([facility]), but suggested post- echo non-urgently. Flowsheet Date 01/19/2024 Beard Score Blood Edema Fundus Height Fundus Units Glucose Ketones Leukocytes Nitrite Labor Signs Protein Cervic Dilation Cervic Effacement Cervic Station none 34 cm none none neg Type Weight in lbs Pre/Post Dialysis Refused 140.740438849062 BP Diastolic BP Location Tested BP Systolic BP Type 68 110 Fetus Heart Rate Present A 148 Fetus Movement A Yes Comments 1) complaints of sharp/shoot ing pains in vagina- empathized w/ discomfort, but reassuring for NOT s/o PTL sign2) discussed GBS screening. Plan to collect next visit. Flowsheet Date 02/02/2024 Beard Score Blood Edema Fundus Height Fundus Units Glucose Ketones Leukocytes Nitrite Labor Signs Protein Cervic Dilation Cervic Effacement Cervic Station trace 35.5 cm none Uterine Contract ions neg Type Weight in lbs Pre/Post Dialysis Refused 144.466652636111 BP Diastolic BP Location Tested BP Systolic BP Type 60 120 Fetus Heart Rate Present A 160 Fetus Movement A Yes Comments Went to [facility] [place] [facility] ast night (as it was the closest at the time) for possible leakage and some contractions. SROM test was negative, and cervix was NOT dilated. Some contractions ongoing today, but similar or less than last night and not painful. - did try PO nifedipine which helped for 20-30min (I invited her to try that again after she gets home tonight). GBS collected todayFHT's 160s here, though baby is VERY active during my attempt at doppler for about 3minutes. Will have her go to L&D at [facility] now for monitoring (NST) to r/o persisting tachycardia Flowsheet Date 02/05/2024 Beard Score Blood Edema Fundus Height Fundus Units Glucose Ketones Leukocytes Nitrite Labor Signs Protein Cervic Dilation Cervic Effacement Cervic Station none neg Type Weight in lbs Pre/Post Dialysis Refused Weight 142.58598177007 BP Diastolic BP Location Tested BP Systolic BP Type 82 112 Fetus Heart Rate Present A 145 Fetus Movement A Yes Comments 1) Still having about 3 cont ractions per hour; taking nifedipine 2-3x per day which is helpful for a little while2) discussed GBS + result Flowsheet Date 02/09/2024 Beard Score Blood Edema Fundus Height Fundus Units Glucose Ketones Leukocytes Nitrite Labor Signs Protein Cervic Dilation Cervic Effacement Cervic Station none 36 cm none neg Type Weight in lbs Pre/Post Dialysis Refused 143.93641707037 BP Diastolic BP Location Tested BP Systolic BP Type 66 122 Fetus Heart Rate Present A 140 Fetus Movement A Yes Comments 1) Painful ctx last night, t keyur not consistent- feels like she lost her mucous plug- she defers cervical check today, which is fine, and we will check next week. 2) Headache today this morning, but seems to have resolved now. - relieved with tylenol - Spotty vision with headache, but now resolved- no fevers- mild runny nose- nmL BP today is reassuring to make PreE quite unlikely. Covid and flu testing deferred given real paucity of symtoms and afebrile today. Menstrual History Last Menstrual Date Menses Monthly On Bcp Conception Prior Menses Frequency Hcg Plus Date Menarche Onset Age 1102/19/2023 true false 02/19/2023 28 07/06/19 2 4 15 Genetic Screening And Infection History Question Response Note Patient's Age Will Be 35 Yea rs Or Older At Estimated Date of Delivery false Thalassemia (Uzbek, Gambian, Mediterranean, Or Background): MCV < 80 false Neural Tube Defect (Meningom yelocele, Spina Bifida, Or Anencephaly) false Congenital Heart Defect false Down Syndrome false Jeremías-Sachs (eg, Shinto, Cajun, British-Cameroonian) f alse Tony Disease false Sickle Cell Disease Or Trait () false Hemophilia Or Other Blood Disorders false Muscular Dystrophy false Cystic Fibrosis true mothers 04/22 brot her Recurrent Loss, Or A Stillbirth true miscarriage at 04/2023 Medications (including Suppl ements, Vitamins, Herbs, OTC Drugs), Illicit/Recreational Drugs, Alcohol true see me d list, marijuana Any Other Genetic History true Live With Someone With TB Or Exposed To TB false Patient Or Partner Has History Of Genital Herpes false Rash Or Viral Illness Since Last Menstrual Perio d false History Of STD, Gonorrhea, Chlamydia, HPV, Syphi lis true HPV Other Infection History false Prior GBS-infected child false History of HIV false History of Hepatitis false Hemoglobinopathy Or Carrier false Other Structural Defect false Recent Travel History Outside of Country false Developmental Delay false Autism false Plans and Education First Trimester Discussed Date Discussion Item Discussion Note Discuss ed By 10/17/2023 Avoidance of saunas or hot tubs bcady4 10/17/2023 Screening for aneuploidy bca dy4 10/17/2023 HIV and other routine tests bcady4 10/17/2023 Weight gain counseling bcady 4 10/17/2023 Environmental/work hazards b cady4 10/17/2023 Illicit/recreational drugs b cady4 10/17/2023 Indications for ultrasonography bcady4 10/17/2023 Travel bcady4 10/17/2023 Tobacco/smoking cess ation counseling (ask, advise, assess, assist, and arrange) bcady4 10/17/2023 bcady4 10/17/2023 Use of any medicatio ns (including supplements, vitamins, herbs, or OTC drugs) bcady4 10/17/2023 Seat belt use bcady4 10/17/2023 Risk factors identif ied by history bcady4 10/17/2023 Anticipated course of care bcady4 10/17/2023 Sexual activity bcady4 10/17/2023 Dental care bcady4 10/17/2023 Nutrition counseling ; special diet; dietary precautions (mercury, listeriosis) bcady4 10/17/2023 Toxoplasmosis precautions (cats/raw meat) bcady4 10/17/2023 Exercise bcady4 10/17/2023 Teratogens bcady4 10/17/2023 Alcohol bcady 10/17/2023 Childbirth classes/hospital facilities bcady4 Second Trimester Discussed Date Discussion Item Discussion Note Discuss ed By 12/19/2023 Signs and symptoms of labor bcady 01/07/20[address] a care provider Dr. Jeremías Quintanilla [facility] 01/19/2024 Tobacco/smoking cess ation counseling (ask, advise, assess, assist, and arrange) [facility] 12/19/2023 Depression screening (when indicated) bcady4 Third Trimester Discussed Date Discussion Item Discussion Note Discuss ed By 01/19/2024 Tobacco/smoking cess ation counseling (ask, advise, assess, assist, and arrange) [facility] Delivery Information Delivery Date Delivery Type Labor Anesthesia Weeks Gestation Incision Type Labor Labor Length Hrs Delivered By Post Complications Tubal Sterilization Discharge Date Comments Sponta neous Regional-Ep idural 37.4 false Mulugeta Mcgregor MD false 02/16/2024 Discharge Information Feeding Method Contraceptive Method Maternal HG B and HCT Levels Breast 10.4
--- OUTSIDE RECORDS SUMMARY | 2024-08-15 15:36 | XMS_ITS | Encounter Summary ---
Author Organization [facility] Address [address] [place] [address] Care Team Providers Care Salvage Supervisor Name Role Phone Tesfaye Herrera MD Primary Care Provider [phone] Andrade Morales MD Primary Care Provider [phone] Jing Marques MD Primary Care Provider [phone] Paulina Quintanilla MD Primary Care Provider [phone] Encounter Details Date Type Department Care Team (Late st Contact Info) Description 09/26/2018 Abstract SFL CONVERSION [address] [place] [address] , Generic ConversionMD Social History Tobacco Use Types Packs/Day Years Used Date Smoking Tobacco: Never Assessed Comments Unknown Sex and Gender Information Value Date Recorded Sex Assigned at Female 07/03/2024 9:03 AM CDT Legal Sex Female 10:24 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 Gender Identity Not on file Sexual Orientation Not on file documented as of this encounter Plan of Treatment Not on file documented as of this encounter Visit Diagnoses Not on filedocumented in this encounter Additional Health Concerns Infection Onset Date Last Indicated Resolved Time COVID-19 Rule Out 12/29/2020 12/29/2020 12/29/2020 10:01 PM CDT documented as of this encounter Care Teams Salvage Supervisor Relationship Specialty Start Date End Date Tesfaye Herrera MD [address] [place] [phone] PCP - General FAMILY PRACTICE 12/09/18 05/26/20 Andrade Morales MD [address] [place] [phone] PCP - General FAMILY PRACTICE 05/27/20 07/10/23 Jing Marques MD [address] [place] [phone] PCP - General FAMILY PRACTICE 07/11/23 02/15/24 Paulina Quintanilla MD [address] [place] [address] PCP - General FAMILY PRACTICE 02/16/24 documented as of this encounter
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
--- NOTE | 2024-08-15 15:37 | ED_ITS ---
HPI - Head Injury General Chief complaint: Head Injury Stated complaint: head injury Time Seen by Provider: 08/15/24 15:36 Source: patient Mode of arrival: ambulatory Limitations: no limitations History of Present Illness HPI Narrative: patient is a 28-year-old female with a head injury yesterday. She was working in her closet hanging clothes and medium-sized box that was made out of wood relatively heavy fell onto the left frontal area of her head. No syncope or loss of consciousness. She was at ground level. Her neck hurts after the injury. She is having some difficulty concentrating and holding objects in her hand as well as continued headaches that started late after the event. She is having some vision changes as well. MD Complaint: head injury Onset (ago): day(s) ( One) Mechanism of Injury: other ( object fell onto her head about 2 ft above where she was standing ground level) Place: home Loss of Consciousness: no Location of injury: frontal ( left) Severity: moderate Severity scale (1-10): 4 Quality: sharp Radiation: none Other Injuries: neck ( discomfort after the injury as well as her face ( she is currently having a sinus and upper respiratory infection)) Context: other ( no blood thinners) Associated symptoms: vision changes and neck pain Related Data Home Medications ?Medication ?Instructions ?Recorded ?Confirmed ?Last Taken ?Type quetiapine 300 mg tablet (Seroquel) 300 mg PO HS 02/01/24 04/27/24 1 Day Ago History ~01/31/24 buspirone 15 mg tablet 15 mg PO DAILY 08/15/24 Unknown History venlafaxine 37.5 mg 37.5 mg PO DAILY 08/15/24 Unknown History capsule,extended release 24 hr venlafaxine 75 mg capsule,extended 75 mg PO DAILY 08/15/24 Unknown History release 24 hr Allergies Allergy/AdvReac Type Severity Reaction Status Date / Time erythromycin base Allergy Mild Vomiting Verified 04/27/24 12:26 Review of Systems Review of Systems: All systems reviewed & are unremarkable except as noted in HPI and below Constitutional: Constitutional: Reports no additional constitutional complaints Eyes: Eyes: Reports no additional eye complaints ENT: Reports system reviewed and no additional complaints, except as documented Cardiovascular: Cardiovascular: Reports no additional cardiovascular complaints Respiratory: Respiratory: Reports no additional respiratory complaints Gastrointestinal: Gastrointestinal: Reports no additional gastrointestinal complaints Genitourinary: Genitourinary: Reports no additional female genitourinary complaints Musculoskeletal: Musculoskeletal: Reports no additional musculoskeletal complaints Integumentary/Breasts: Skin/Breast: Reports system reviewed and no additional complaints, except as docu Neurologic: Reports system reviewed and no additional complaints, except as documented Psychiatric: Psychiatric: Reports no additional psychiatric complaints Endocrine: Endocrine: Reports no additional endocrine complaints Hematologic/Lymphatic: Hematologic/Lymphatic: Reports no additional hematologic/lymphatic complaints Allergic/Immunologic: Allergic/Immunologic: Reports no additional allergic/immunologic complaints Exam Const: General: healthy appearing Nutritional Appearance: well nourished Orientation/consciousness: patient oriented x3 Limitations: no limitations HENMT: Head: normal to inspection Ears: external ears normal Face/Nose/Sinus: Normal external nose present Eyes: Conjunctivae: conjunctivae normal Pupils: Equal, round and reactive pupils present EOM: EOMs intact bilaterally Neck: Neck: normal visual inspection Other: Tender cervical spine on the left greater than the right to palpation of the paraspinal muscles Chest: Chest palpation & inspection: normal inspection of the chest Resp: Effort & Inspection: normal respiratory effort and not labored Auscultation: clear to auscultation bilaterally and no crackles Cardio: Rate: regular rate Rhythm: regular rhythm Heart sounds: no murmurs GI: Inspection: non-distended GI Palp: Yes Soft to palpation and No Tenderness to palpation present (GI) Auscultation: normal bowel sounds : General: Yes bladder normal to palpation Back/Spine/Pelvis: Back: no CVA tenderness Skin: General skin exam: normal color Rashes: no rashes Wounds: no wounds Neuro: General: patient oriented x3, moves all extremities, no meningeal signs and no focal motor deficits Cranial nerves: Yes CN's II-XII intact bilaterally Speech: normal speech Gait exam (Neuro): Normal gait present Other: fast exam is negative, NIH score is 0, Francheska coma Score is 15 Extrem: General: normal to inspection Psych: Mental Status: mental status grossly normal Affect: normal affect Attitude: cooperative Course Vital Signs Vital signs: Vital Signs Temperature 36.9 C 08/15/24 15:36 Pulse Rate 93 08/15/24 15:36 Respiratory Rate 16 08/15/24 15:36 Blood Pressure 117/78 08/15/24 15:36 Pulse Oximetry 98 08/15/24 15:36 Oxygen Delivery Room Air 08/15/24 15:36 Temperature 36.9 C 08/15/24 15:36 Pulse Rate 93 08/15/24 15:36 Respiratory Rate 16 08/15/24 15:36 Blood Pressure 117/78 08/15/24 15:36 Pulse Oximetry 98 08/15/24 15:36 Oxygen Delivery Room Air 08/15/24 15:36 MDM - Head Injury MDM Narrative Medical decision making narrative: patient is a 28-year-old female with a head injury yesterday and having some complaints today. We will do a CT scan of the head and cervical spine. probable benign findings in the cervical spine on CT scan however we will have [facility] review CT scan results and give further evaluation considerations. 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 Imaging Data Attestation: I personally reviewed and interpreted this imaging study as follows: Radiologist's impression: CT scan of the head was negative for acute process CT scan of the cervical spine shows IMPRESSION: No definite acute osseous abnormality cervical spine. Bifid posterior arch of C1. Small bony fragment near to the skull base seen on the left side which may be acute versus chronic fracture versus nonunited apophysis. Clinical correlation and follow-up advised. 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 and nothing acute) Discharge Plan Discharge Clinical Impression: Closed head injury Qualifiers: Encounter type: initial encounter Qualified Code(s): S09.90XA - Unspecified injury of head, initial encounter Concussion without loss of consciousness Qualifiers: Encounter type: initial encounter Qualified Code(s): S06.0X0A - Concussion without loss of consciousness, initial encounter Patient Disposition: Home Condition: Stable Instructions: Concussion (ED), Head Injury (ED) Patient Language: Tunisian Prescriptions: No Action buspirone 15 mg tablet 15 mg PO DAILY venlafaxine 37.5 mg capsule,extended release 24hr 37.5 mg PO DAILY venlafaxine 75 mg capsule,extended release 24hr 75 mg PO DAILY quetiapine [Seroquel] 300 mg Tablet 300 mg PO HS Follow-up/Referrals: Dwight,Melanie Corado NP [Non-Staff] - Time of Disposition: 17:06
--- OUTSIDE RECORDS SUMMARY | 2024-08-15 16:14 | XMS_ITS | Clinical Summary ---
Author Organization [facility] Address [address] [place] [address] Care Team Providers Care Straightedge Man Name Role Phone Paulina Quintanilla MD Primary Care Provider [phone] Allergies Active Allergy Reactions Criticality Noted Date [...] Date Diagnosed Date Premature rupture of membranes ([facility]) 024 Hypokalemia 12/13/2018 Hypoxemia 12/13/2018 Respiratory failure with hypoxia ([facility]) 12/13/2018 ARDS (adult respiratory dist ress syndrome) ([facility]) 12/13/2018 Depression 12/12/2018 Anxiety 12/12/2018 Pneumonia 12/11/2018 Resolved Problems Problem Noted Date Diagnosed Date Resolved Date Vomiting 12/12/2018 12/13/2018 Encounters Date Type Department Care Team Description 07/03/2024 8:42 AM CDT - 07/03/2024 9:15 AM CDT Emergency [facility] [address] [place] [address] Kang Santoyo MD Eye Drainage Discharge Disposition: [...] from your doctor or pharmacy? Never 02/12/2024 [employer] Utilities Answer Date Recorded In the past 12 months has e [employer], gas, oil, or water [employer] threatened to shut off services in your [...] often do you attend chur ch or anabaptist services? Never 02/12/2024 Do you belong to any clubs o r organizations such as hinduism groups, unions, fraternal or athletic groups, or [...] medical care, and heating? Somewhat hard 02/12/2024 [facility] of Occupat ional Health - Occupational Stress [...] any time in the past 12 m [facility], were you homeless or living in a alf (including now)? 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 Gender Identity Not on file Sexual Orientation [...] Most Recently Relevant to Health Maintenance Insurance [facility] C/O PROVID[facility] CHANDANA MADERA [id number] Advance Directives * Full Code (Latest Code Status on File) Date Activated Date Inactivated Comments 02/12/2024 3:06 PM 02/16/2024 3:06 PM * Full Code Date Activated Date Inactivated Comments 12/13/2018 2:40 PM 12/18/2018 3:09 PM * Full Code Date Activated Date Inactivated Comments 12/11/2018 11:21 PM 12/13/2018 2:34 PM Care Teams Straightedge Man Relationship Specialty Start Date End Date Paulina Quintanilla MD [address] [place] [address] PCP - General FAMILY PRACTICE 02/16/24
--- OUTSIDE RECORDS SUMMARY | 2024-08-15 16:14 | XMS_ITS | Encounter Summary ---
Author Organization [facility] Address [address] [place] [id number] Care Team Providers Care Anti Tank Missileman Name Role Phone Tesfaye Herrera MD Primary Care Provider [phone] Andrade Morales MD Primary Care Provider [phone] Jing Marques MD Primary Care Provider [phone] Paulina Quintanilla MD Primary Care Provider [phone] Encounter Details Date Type Department Care Team (Late st Contact Info) Description 09/26/2018 Abstract [facility] CONVERSION [address] [place] [address] , Generic ConversionMD Social History Tobacco Use Types Packs/Day Years Used Date Smoking Tobacco: Never Assessed Comments Unknown Sex and Gender Information Value Date Recorded Sex Assigned at Female 07/03/2024 9:03 AM CDT Legal Sex Female 10:24 PM [employer] Gender Identity Not on file Sexual Orientation Not on file documented as of this encounter Plan of Treatment Not on file documented as of this encounter Visit Diagnoses Not on filedocumented in this encounter Additional Health Concerns Infection Onset Date Last Indicated Resolved Time COVID-19 Rule Out 12/29/2020 12/29/2020 12/29/2020 10:01 PM CDT documented as of this encounter Care Teams Anti Tank Missileman Relationship Specialty Start Date End Date Tesfaye Herrera MD [address] [place] [id number] PCP - General FAMILY PRACTICE 12/09/18 05/26/20 Andrade Morales MD [address] [place] [id number] PCP - General FAMILY PRACTICE 05/27/20 07/10/23 Jing Marques MD [address] [place] [id number] PCP - General FAMILY PRACTICE 07/11/23 02/15/24 Paulina Quintanilla MD [address] [place] [address] PCP - General FAMILY PRACTICE 02/16/24 documented as of this encounter
[2024-08-15 17:13] VITALS: BP 123/87; PULSE 99; RESP 20; TEMP 36.7; O2SAT 99
== END 2024-08-15 17:14 | disposition home or self-care (01) ==
PROVIDERS: Emergency Provider Emergency Medicine
DX: S06.0X0A Concussion without loss of consciousness, initial encounter (principal); W20.8XXA Other cause of strike by thrown, projected or falling object, initial encounter; Z79.899 Other long term (current) drug therapy
CPT/HCPCS: 70450; 72125; 99284